=== PATIENT | male | born 1965 | race Caucasian/White ===

== ENCOUNTER 2021-02-26 11:23 | Emergency (ER) | payer SELFPAY ==
[~2021-02-26] VITALS: Ht 175.3 cm; Wt 118.8 kg
== END 2021-02-26 14:12 | disposition home or self-care (01) ==
LOC: ER1 11:23
DX: U07.1 COVID-19 (principal); Z23 Encounter for immunization; F17.290 Nicotine dependence, other tobacco product, uncomplicated
CPT/HCPCS: 99284; M0243

== ENCOUNTER 2021-03-02 16:07 | Emergency (ER) | payer BC ==
[2021-03-02 17:50] LABS: HEMOGLOBIN 14.1 gm/dl (14.0-17.5); RED BLOOD COUNT 4.52 M/UL (4.20-5.50); WHITE BLOOD COUNT 11.5 K/UL (4.5-11.0)
[2021-03-02 18:22] LABS: BUN/CREATININE RATIO 10 (0-10)
[2021-03-02] MEDS ORDERED: DECADRON6 MG PO (22:20)
== END 2021-03-02 22:29 | disposition home or self-care (01) ==
LOC: ER1 16:07
PROVIDERS: Physician Assistant
DX: U07.1 COVID-19 (principal); J12.82 Pneumonia due to coronavirus disease 2019
CPT/HCPCS: 36600; 71045; 80053; 82550; 82553; 82803; 83605; 83874; 84484; 85025; 85379; 87040; 93005; 96374; 96375; 99285; J0696; J1100; Q9967; U0002

== ENCOUNTER → 2021-03-13 | Outpatient (CLI) | payer BC ==
[~2021-03-13] MED LIST: DECADRON6 MG PO
== END ==
LOC: KOH-I 13:48
DX: U07.1 COVID-19 (principal); J12.82 Pneumonia due to coronavirus disease 2019
CPT/HCPCS: 71046